=== PATIENT | male | born 1995 | race African-American/Black ===

== ENCOUNTER 2016-02-29 00:06 | Emergency (ER) | payer MEDICAID ==
[2016-02-29 00:07] VITALS: BP 129/60; PULSE 62; RESP 16; TEMP 97.8; O2SAT 98
== END 2016-02-29 01:20 | disposition left against medical advice (07) ==
LOC: NED 00:06
DX: K08.89 Other specified disorders of teeth and supporting structures (principal); Z53.21 Procedure and treatment not carried out due to patient leaving prior to being seen by health care provider
CPT/HCPCS: 99281